=== PATIENT | female | born 1980 | race Caucasian/White ===

== ENCOUNTER 2019-05-06 22:37 | Emergency (ER) | payer MEDICAID ==
[~2019-05-06] VITALS: Ht 152.4 cm; Wt 45.4 kg
[2019-05-06 22:51] VITALS: BP 124/68
--- NOTE | 2019-05-06 22:54 | NUR ---
TO LOBBY A/W BED AMBULATORY
--- NOTE | 2019-05-06 23:32 | NUR ---
PT AMBULATED TO BED 03.
--- NOTE | 2019-05-06 23:35 | NUR ---
PT TAKEN TO CT VIA WC.
--- NOTE | 2019-05-06 23:45 | NUR ---
39 YO F BIB SELF PRESENTS TO ED C/O 08/05 CRAMPING BILATERAL LOWER ABD PAIN X 5 HOURS WITH NAUSEA, NO VOMITING. PT DENIES FEVER, CHILLS, DIARRHEA. LAST BM TODAY, NORMAL. SKIN PINK, WARM, DRY. BREATHING EVEN, UNLABORED. PT AWAKE, ALERT, CALM, COOPERATIVE. APPEARS TO BE UNCOMFORTABLE. BOWEL SOUNDS ACTIVE + 4. NO REBOUND TENDERNESS NOTED. PMH-- GALLBLADDER REMOVAL, 2010 RX-- DENIES
[2019-05-06 23:47] LABS: APPEARANCE,URINE SL CLOUDY (CLEAR); BILIRUBIN,URINE 1+ (NEGATIVE); BLOOD, URINE 1+ (NEGATIVE); COLOR,URINE YELLOW (YELLOW); LEUKOCYTE ESTERASE ,URINE 1+ (NEGATIVE); NITRITE, URINE NEGATIVE (NEGATIVE); PH,URINE 6.5 (5.0-9.0); UGLUCOSE NEGATIVE (NEGATIVE)
[2019-05-06 23:48] LABS: HEMATOCRIT 39.9 % (36-48); HEMOGLOBIN 13.5 g/dL (12.0-16.0); MEAN CORPUSCULAR HEMOGLOBIN 31 pg (27-31); MEAN CORPUSCULAR HGB CONC 34 g/dL (33-37); MEAN CORPUSCULAR VOLUME 91.2 fL (80-94); PLATELET COUNT (AUTO) 189 K/uL (140-450); RED BLOOD CELL COUNT(AUTO) 4.37 MIL/uL (4.20-5.40); RED CELL DISTRIBUTION WIDTH 12.8 % (11.6-13.7); WHITE BLOOD COUNT (AUTO) 12.7 K/uL (4.8-10.8)
[2019-05-07 00:07] LABS: EOSINOPHILS % (MANUAL) 1 % (0-4); LYMPHOCYTES % (MANUAL) 9 % (20-46); MONOCYTES % (MANUAL) 2 % (5-12)
[2019-05-07 00:11] LABS: ANION GAP 13.2 (8-16); CARBON DIOXIDE 25.5 mmol/L (21-32); CREATININE 0.7 mg/dL (0.6-1.3); POTASSIUM 3.7 mmol/L (3.5-5.1)
[2019-05-07 00:15] LABS: ALBUMIN 4.1 g/dL (3.4-5.0); TOTAL BILIRUBIN 0.5 mg/dL (0.0-1.0)
[2019-05-07 00:31] LABS: RBC,URINE 11-20 (MOD) /HPF (0-5)
--- NOTE | 2019-05-07 01:00 | NUR ---
Patient appears to be resting comfortably in bed. Vital Signs within normal limits. Respirations even and unlabored.
[2019-05-07] MEDS ORDERED: KETOROLAC 60 MG/2 ML VIAL IM ONE (02:35)
[2019-05-07 02:56] VITALS: BP 101/67
--- NOTE | 2019-05-07 02:56 | NUR ---
Patient discharged with v/s stable. Written and verbal after care instructions given and explained. Patient alert, oriented and verbalized understanding of instructions. Ambulatory with steady gait. All questions addressed prior to discharge. ID band removed. Patient advised to follow up with PMD. Rx of Motrin, Cipro, [place] given. Patient educated on indication of medication including possible reaction and side effects. Opportunity to ask questions provided and answered.
== END 2019-05-07 02:56 | disposition home or self-care (01) ==
LOC: MED 22:37
DX: N39.0 Urinary tract infection, site not specified (principal); Z90.49 Acquired absence of other specified parts of digestive tract
CPT/HCPCS: 36415; 74176; 80053; 81001; 81025; 83690; 85025; 87086; 96372; 99284; J1885

== ENCOUNTER 2019-10-10 02:06 | Emergency (ER) | payer MEDICAID ==
[~2019-10-10] VITALS: Ht 154.9 cm; Wt 81.6 kg
[2019-10-10 02:10] VITALS: BP 112/66
[2019-10-10] MEDS ORDERED: LIDOCAINE VISCOUS 2% 20 ML UDC ONE (02:35)
[2019-10-10] MEDS ORDERED: ALUMINUM HYD/MAG/SIMETHICONE 30 ML UDC ONE (02:36)
[2019-10-10] MEDS ORDERED: DICYCLOMINE HCL LIQUID 10 MG/5 ML UDC ONE (02:40)
[2019-10-10] MEDS: DICYCLOMINE HCL LIQUID 20 MG, ALUMINUM HYD/MAG/SIMETHICONE 30 ML, LIDOCAINE VISCOUS 2% ... PO ONE ×3 (02:45)
[2019-10-10 03:25] VITALS: BP 104/59
== END 2019-10-10 03:25 | disposition home or self-care (01) ==
LOC: MED 02:06
DX: R10.13 Epigastric pain (principal); F41.9 Anxiety disorder, unspecified; Z90.49 Acquired absence of other specified parts of digestive tract
CPT/HCPCS: 99283

== ENCOUNTER 2022-11-12 00:15 | Emergency (ER) | payer MEDICAID ==
[~2022-11-12] VITALS: Ht 154.9 cm; Wt 50.8 kg
[2022-11-12 00:35] VITALS: BP 120/72
--- NOTE | 2022-11-12 00:38 | NUR ---
to lobby a/w bed ambulatory
--- NOTE | 2022-11-12 00:59 | NUR ---
Dr. Corbett examining patient.
[2022-11-12] MEDS ORDERED: IBUPROFEN 600 MG TAB PO ONE (01:00)
[2022-11-12] MEDS ORDERED: AMOXICILLIN 500 MG CAP PO ONE (01:00)
--- NOTE | 2022-11-12 01:07 | NUR ---
PT TO BED #6
[2022-11-12 01:39] VITALS: BP 120/72
[2022-11-12] MEDS ORDERED: NAPR-54 PO (01:42)
[2022-11-12] MEDS ORDERED: PENI500T20 PO (01:42)
--- NOTE | 2022-11-12 01:44 | NUR ---
Dr. Corbett by bedside.
--- NOTE | 2022-11-12 01:46 | NUR ---
Patient discharged with v/s stable. Written and verbal after care instructions given and explained. New presciption for naproxen and penicillin. Patient verbalized understanding. Ambulatory with steady gait. All questions addressed prior to discharge. Advised to follow up with PMD.
== END 2022-11-12 01:46 | disposition home or self-care (01) ==
LOC: MED 00:15
DX: K08.89 Other specified disorders of teeth and supporting structures (principal); R22.0 Localized swelling, mass and lump, head; Z79.899 Other long term (current) drug therapy
CPT/HCPCS: 99283